=== PATIENT | male | born 2000 | race Caucasian/White ===

== ENCOUNTER → 2020-11-23 | Day surgery (SDC) | payer OTHER ==
[~2020-11-23] MED LIST: HYDROCODON-ACE1 EAC6 PO; NORCO 5-325 TA1 EACH PO; TAMIFLU75 MG PO; ZITHROMAX250 MG PO
[2020-11-23 13:01] LABS: HEMOGLOBIN 13.6 gm/dl (14.0-17.5); RED BLOOD COUNT 4.51 M/UL (4.20-5.50); WHITE BLOOD COUNT 7.1 K/UL (4.5-11.0)
[2020-11-23 13:27] LABS: BUN/CREATININE RATIO 22 (0-10)
== END | disposition home or self-care (01) ==
LOC: OR 11:30
PROVIDERS: Orthopaedic Surgery
PROC: 0PS904Z Reposition Right Clavicle with Internal Fixation Device, Open Approach (ICD-10-PCS; principal; 2020-11-23 16:30)
DX: S42.021A Displaced fracture of shaft of right clavicle, initial encounter for closed fracture (principal); V89.2XXA Person injured in unspecified motor-vehicle accident, traffic, initial encounter; S01.91XA Laceration without foreign body of unspecified part of head, initial encounter; Z20.828 Contact with and (suspected) exposure to other viral communicable diseases
CPT/HCPCS: 73000; 76000; 80048; 85025; C1713; J0690; J1100; J1170; J2001; J2250; J2370; J2405; J2704; J2710; J2765; J2795; J3010; J7120

== ENCOUNTER → 2020-12-02 | Outpatient (CLI) | payer OTHER | LOC: KOH-I 08:00 | DX: S83.242A Other tear of medial meniscus, current injury, left knee, initial encounter (principal); S72.8X2A Other fracture of left femur, initial encounter for closed fracture; S82.832A Other fracture of upper and lower end of left fibula, initial encounter for closed fracture; M25.462 Effusion, left knee; R93.6 Abnormal findings on diagnostic imaging of limbs; V89.2XXA Person injured in unspecified motor-vehicle accident, traffic, initial encounter; Y92.410 Unspecified street and highway as the place of occurrence of the external cause | CPT/HCPCS: 73718; 73721 ==

== ENCOUNTER 2021-10-15 23:48 | Emergency (ER) | payer OTHER ==
[2021-10-16] MEDS ORDERED: NAPROXEN500 MG PO (00:41)
== END 2021-10-16 00:45 | disposition home or self-care (01) ==
LOC: ER1 23:48
DX: M25.511 Pain in right shoulder (principal); G89.29 Other chronic pain
CPT/HCPCS: 73000; 99283